=== PATIENT | male | born 1990 | race Caucasian/White ===

== ENCOUNTER 2023-12-24 15:04 | Emergency (ER) | payer OTHER ==
[~2023-12-24] VITALS: Ht 177.8 cm; Wt 83.2 kg
[2023-12-24] MEDS: LIDOcaine/epinephrine/tetracaine TOPICAL sol 3 ML syringe TOP ONE (15:28)
[2023-12-24] MEDS ORDERED: AMOX-117 PO (15:32)
[2023-12-24 16:14] VITALS: BP 138/87; PULSE 76; RESP 16; TEMP 98.6; O2SAT 94
== END 2023-12-24 16:16 | disposition home or self-care (01) ==
LOC: ER 15:05
DX: S01.511A Laceration without foreign body of lip, initial encounter (principal); F10.129 Alcohol abuse with intoxication, unspecified; Z79.2 Long term (current) use of antibiotics; W19.XXXA Unspecified fall, initial encounter; Y93.89 Activity, other specified; Y92.89 Other specified places as the place of occurrence of the external cause; Y99.8 Other external cause status; Y90.9 Presence of alcohol in blood, level not specified
CPT/HCPCS: 12011; 99284; A6258; J3490; A6449

== ENCOUNTER 2024-03-01 21:07 | Emergency (ER) | payer OTHER ==
[~2024-03-01] VITALS: Ht 177.8 cm; Wt 81.8 kg
[2024-03-01 21:14] VITALS: BP 153/87
[2024-03-01 21:46] VITALS: PULSE 106; RESP 18; TEMP 97.7; O2SAT 98
== END 2024-03-01 21:48 ==
LOC: ER 21:08
DX: Z02.89 Encounter for other administrative examinations (principal); V99.XXXA Unspecified transport accident, initial encounter; Y93.89 Activity, other specified; Y92.89 Other specified places as the place of occurrence of the external cause; Y99.8 Other external cause status
CPT/HCPCS: 99283